=== PATIENT | female | born 1965 | race Caucasian/White ===

== ENCOUNTER 2020-02-03 11:57 | Emergency (ER) | payer BC ==
[2020-02-03 12:16] VITALS: BP 136/89; PULSE 90; TEMP 99.2; BMI 26.1
[2020-02-03] MEDS ORDERED: KETOROLAC TROMETHAMINE 30 MG/1 ML VIAL IM ONE (13:17)
--- NOTE | 2020-02-03 13:27 | PDOC ---
History of Present Illness - General Chief Complaint: Pain, Acute Stated Complaint: BACK PAIN Time Seen by Provider: 02/03/20 12:44 History Source: Patient Exam Limitations: No Limitations - History of Present Illness Initial Comments: 02/03/20 13:26 54-year-old female past medical history hypertension presenting at the ED with back pain since Thursday. Patient states she was seen at [facility] given ibuprofen 600 which only provide mild relief patient states the pain has worsened since and is now radiating down her right leg. Patient does not recall an inciting event and states that she just woke up with severe back pain on the right side. Denies saddle esthesia urinary or bowel incontinence or retention. Pt otherwise denies: fevers, chills, syncope, lightheadedness, dizziness, headaches, neck pain, chest pain, shortness of breath, palpitations, abdominal pain, nausea, vomiting, diarrhea, constipation, urinary symptoms. Past History - Medical History Allergies/Adverse Reactions: Allergies Allergy/AdvReac Type Severity Reaction Status Date / Time No Known Allergies Allergy Verified 02/03/20 12:16 Home Medications: Ambulatory Orders Cyclobenzaprine HCl [Flexeril 10 mg] 10 mg PO BID PRN #21 tablet MDD 2 02/03/20 Diclofenac Sodium 50 mg PO TID #21 tablet. 02/03/20 - Reproductive History Is Patient Now?: No - Psycho-Social/Smoking History Smoking History: Never smoked - Substance Abuse Hx (Audit-C & DAST Scrn) How often the patient has a drink containing alcohol: Never Score: In Men: 4 or > Positive; In Women: 3 or > Positive: 0 Screen Result (Pos requires Nsg. Audit-10AR): Negative In the last yr the pt used illegal drug/Rx for NonMed reason: No Score: Yes response is considered Positive: 0 Screen Result (Positive result requires Nsg. DAST-10): Negative *Physical Exam - Vital Signs Last Vital Signs Temp Pulse Resp BP Pulse Ox 99.2 F 90 18 136/89 100 02/03/20 12:09 02/03/20 12:02/03/20 12:02/03/20 12:02/03/20 12:09 - Physical Exam 02/03/20 13:29 Gen: AAOx 3, no acute distress, comfortable, no signs of respiratory distress HENT: atraumatic, normocephalic with no laceration or contusion. Nasal mucosa without erythema. Oropharynx without erythema or exudates. Mucous membranes moist. EYES: PERRL, EOM intact, conjunctiva pink NECK: supple; trachea midline; no JVD, no lymphadenopathy, or thyromegaly CV: RRR no murmurs, gallops, or rubs. CHEST: CTA b/l no wheezing, rales or rhonchi ABD: +BS/ND. no TTP; soft, no rebound, no guarding EXTREMITY: no cyanosis or erythema. 2+ dorsalis pedis, posterior tibial, and radial pulse. No pedal edema; no calf swelling or tenderness SKIN: no rash, warm and dry, no diaphoresis HEME: no purpura or ecchymosis NEURO: normal speech, CN II-XII intact, sensation intact, normal gait, no cerebellar deficits MS: 5/5 strength in all extremities, FROM intact in all extremities. Back: TTP over R lumbar paravertebrals no midline tenderness difficulty bearing weight + R SLR Medical Decision Making - Medical Decision Making 02/03/20 13:30 54-year-old female past medical history hypertension with sciatic-like pain Vital signs stable We will give Toradol and Percocet for symptomatic relief We will reassess based on results We will send ibuprofen and Flexeril the patient's preferred pharmacy Patient was instructed not to drive or operate heavy machinery while taking Flexeril. The patient was also instructed not to take the medication with any other sedating medications and not to drink alcohol while taking the medication. Patient reports improvement in symptoms with meds appears well and is safe stable discharge Strict return precautions given As well as signs and symptoms for prompt return to the ED Supportive care instructions explained and given to pt. Reasons to return emergently to ER explained and given. Importance of follow up with PMD and other specialists as indicated stressed to pt. Pt verbalized understanding of instructions. Pt to follow up with PMD in 2 days. Discharge - Discharge Information Problems reviewed: Yes Clinical Impression/Diagnosis: Sciatica Qualifiers: Laterality: right Qualified Code(s): M54.31 - Sciatica, right side Condition: Stable Disposition: HOME - Additional Discharge Information Prescriptions: Diclofenac Sodium 50 mg PO TID #21 tablet. Cyclobenzaprine HCl [Flexeril 10 mg] 10 mg PO BID PRN #21 tablet MDD 2 PRN Reason: Back Pain - Follow up/Referral - Patient Discharge Instructions Patient Printed Discharge Instructions: DI for Back Pain With Sciatica Print Language: UPPER SORBIAN - Post Discharge Activity
[2020-02-03] MEDS ORDERED: KETOROLAC TROMETHAMINE 30 MG/1 ML VIAL ONE (13:42)
== END 2020-02-03 14:55 | disposition home or self-care (01) ==
LOC: JER 11:57
PROC: 3E0233Z Introduction of Anti-inflammatory into Muscle, Percutaneous Approach (ICD-10-PCS; principal; 2020-02-03)
DX: M54.31 Sciatica, right side (principal)
CPT/HCPCS: 99284-25